=== PATIENT | female | born 1940 | race Two or more races ===

== ENCOUNTER 2022-09-06 00:01 | Inpatient (IN) | payer MEDICAID, OTHER ==
[~2022-09-06] VITALS: Ht 152.4 cm; Wt 65.0 kg
[~2022-09-06 00:01] MED LIST: CALC500C66 PO; DILT360C6 PO; GLIM2TAB33 PO; HYDR25TA4 PO; LOSA-69 PO; METF-372 PO; SIMV-13 PO
[2022-09-06 03:05] LABS: Basophils # (auto) 0 10 ^3/uL (0-0.2); Basophils % (auto) 0.4 % (0.0-2.0); Eosinophils # (auto) 0.1 10 ^3/uL (0-0.8); Eosinophils % (auto) 0.8 % (0.0-7.0); Hematocrit 29.5 % (36.0-46.0); Hemoglobin 9.6 g/dL (12.2-16.2); Lymphocytes % (auto) 11.9 % (10.0-50.0); Mean Corpuscular Hemoglobin 30.6 pg (28.0-32.0); Mean Corpuscular Hgb Conc. 32.6 g/dL (32.0-36.0); Mean Corpuscular Volume 93.9 fL (80.0-100.0); Monocytes # (auto) 0.5 10 ^3/uL (0-1.3); Monocytes % (auto) 5.6 % (0.0-12.0); Neutrophils # (auto) 6.8 10 ^3/uL (1.6-8.6); Neutrophils % (auto) 81.3 % (37.0-80.0); Red Blood Cells 3.14 10^6/uL (4.0-5.20); Red Cell Distribution Width 15.2 % (11.8-14.3); White Blood Cell 8.3 10^3/uL (4.4-10.8)
[2022-09-06 03:26] LABS: Albumin 2.7 g/dL (3.4-5.0); BUN/Creatinine Ratio 38.4 (10.0-20.0); Calcium 8.8 mg/dL (8.5-10.1); Potassium 4.8 mmol/L (3.5-5.1)
[2022-09-06 03:29] LABS: Bilirubin, Total 0.2 mg/dL (0.2-1.0); Total Protein 6.5 g/dL (6.4-8.2)
[2022-09-06] MEDS ORDERED: DEXTROSE 10% 1,000 ML IV ONE ×2 (06:55→10:15)
[2022-09-06] MEDS ORDERED: DEXTROSE 10% 250 ML IV ONE (07:15)
[2022-09-06 07:53] LABS: Urine Bacteria FEW /hpf (None Seen); Urine Blood Negative /uL (Negative); Urine Specific Gravity 1.009 (1.001-1.035); Urine WBC 3 /hpf (0 - 5)
[2022-09-06] MEDS ORDERED: MORPHINE SULFATE INJ 2 MG/ml SYRG IV PRN (09:30)
[2022-09-06] MEDS ORDERED: NITROGLYCERIN 0.4 MG SL TAB SL PRN (09:30)
[2022-09-06] MEDS ORDERED: IPRATROPIUM BROM 0.5 MG/2.5ML INH SOL NEB PRN (10:15)
[2022-09-06] MEDS ORDERED: cefTRIAXone 1GM/50ML D5W 50 ML IV ONE (10:15)
[2022-09-06] MEDS ORDERED: hydrALAZINE HCL 20 MG/ML VL IV PRN (10:15)
[2022-09-06] MEDS: ACCU-CHEK COMFORT CURVE STRIP VI SCH ×14 (10:15→23:15)
[2022-09-06] MEDS ORDERED: ALBUTEROL SULF 2.5 MG/0.5ML(0.5%) NEB SOLN NEB PRN (10:15)
[2022-09-06] MEDS ORDERED: DEXTROSE (50%) 50ML SYRG IV PRN (10:15)
[2022-09-06 10:52] LABS: Cholesterol 88 mg/dL (< 200); Triglycerides 44 mg/dL (< 150)
[2022-09-06 10:54] LABS: HDL Cholesterol 46 mg/dL (40-59); LDL Cholesterol 43 mg/dL (< 100)
[2022-09-06] MEDS: SODIUM CHLORIDE 0.9% 1,000 ML IV SCH ×2 (12:26→23:35)
[2022-09-06 17:22] VITALS: BP 126/59
[2022-09-06] MEDS: ACETAMINOPHEN 325 MG TAB PO PRN (21:27)
[2022-09-07] MEDS: ACCU-CHEK COMFORT CURVE STRIP VI SCH ×5 (00:15→08:00)
[2022-09-07 06:15] LABS: Basophils # (auto) 0.1 10 ^3/uL (0-0.2); Basophils % (auto) 0.9 % (0.0-2.0); Eosinophils # (auto) 0.3 10 ^3/uL (0-0.8); Eosinophils % (auto) 5.1 % (0.0-7.0); Hemoglobin 9.3 g/dL (12.2-16.2); Lymphocytes # (auto) 1.6 10 ^3/uL (0.4-5.4); Lymphocytes % (auto) 30.3 % (10.0-50.0); Mean Corpuscular Hgb Conc. 33.1 g/dL (32.0-36.0); Mean Corpuscular Volume 90.6 fL (80.0-100.0); Monocytes # (auto) 0.8 10 ^3/uL (0-1.3); Monocytes % (auto) 15.1 % (0.0-12.0); Neutrophils # (auto) 2.6 10 ^3/uL (1.6-8.6); Neutrophils % (auto) 48.6 % (37.0-80.0); Nucleated Red Blood Cells % 0.2 %; Red Cell Distribution Width 14.7 % (11.8-14.3); White Blood Cell 5.4 10^3/uL (4.4-10.8)
[2022-09-07 06:45] LABS: Potassium 4.4 mmol/L (3.5-5.1)
[2022-09-07 06:49] LABS: Albumin 2.8 g/dL (3.4-5.0); BUN/Creatinine Ratio 23.2 (10.0-20.0); Calcium 8.8 mg/dL (8.5-10.1)
[2022-09-07 06:51] LABS: Bilirubin, Total 0.4 mg/dL (0.2-1.0); Total Protein 6.5 g/dL (6.4-8.2)
[2022-09-07] MEDS ORDERED: cefTRIAXone 1GM/50ML D5W 50 ML IV SCH (09:00)
[2022-09-07] MEDS ORDERED: LOSARTAN POTASSIUM 50 MG TAB PO SCH (10:00)
[2022-09-07] MEDS ORDERED: dilTIAZem HCL 180MG ER CAP PO SCH (10:00)
[2022-09-07] MEDS ORDERED: ATORVASTATIN 20 MG TAB PO SCH (10:00)
[2022-09-07] MEDS ORDERED: HCTZ 25 MG TAB PO SCH (10:00)
[2022-09-07] MEDS: ACETAMINOPHEN 325 MG TAB PO PRN (10:12)
[2022-09-07] MEDS ORDERED: CEPH-510 PO (11:22)
[2022-09-07 11:30] VITALS: BP 133/67
== END 2022-09-07 13:10 | disposition home or self-care (01) | DRG 420 ==
LOC: EDBD 00:01 → ER 00:01 → TELE 09:36
PROVIDERS: ADMIT Registered Nurse; ATTEND Internal Medicine Geriatric Medicine
DX: E11.649 Type 2 diabetes mellitus with hypoglycemia without coma (principal); G93.41 Metabolic encephalopathy; E44.0 Moderate protein-calorie malnutrition; E78.5 Hyperlipidemia, unspecified; I10 Essential (primary) hypertension; D50.9 Iron deficiency anemia, unspecified; E86.0 Dehydration; E87.1 Hypo-osmolality and hyponatremia; N30.00 Acute cystitis without hematuria; Z68.28 Body mass index [BMI] 28.0-28.9, adult; E88.09 Other disorders of plasma-protein metabolism, not elsewhere classified; A08.4 Viral intestinal infection, unspecified; Z79.84 Long term (current) use of oral hypoglycemic drugs
CPT/HCPCS: 36415; 36600; 70450; 71045; 80053; 80061; 80320; 81001; 82010; 82140; 82805; 82962; 83036; 83605; 83690; 83880; 84443; 84484; 85025; 87040; 87086; 93005; 93306; 93886; 96360; G0378; J0696